=== PATIENT | female | born 1945 | race Caucasian/White ===

== ENCOUNTER → 2017-01-10 | Outpatient (CLI) | payer OTHER, MEDICAID | PROVIDERS: ATTEND Internal Medicine | DX: R13.10 Dysphagia, unspecified (principal); G20 Parkinson's disease | CPT/HCPCS: 74230; 92611; G8996; G8997 ==

== ENCOUNTER → 2017-01-20 | Outpatient (CLI) | payer OTHER, MEDICAID | LOC: FIMAGING 11:54 | PROVIDERS: ATTEND Physician Assistant | DX: M17.11 Unilateral primary osteoarthritis, right knee (principal); M25.562 Pain in left knee; Z96.652 Presence of left artificial knee joint ==

== ENCOUNTER → 2017-02-08 | Outpatient (CLI) | payer OTHER, MEDICAID | LOC: FIMAGING 08:16 | PROVIDERS: ATTEND Physician Assistant | DX: R13.14 Dysphagia, pharyngoesophageal phase (principal) ==

== ENCOUNTER → 2017-02-10 | Outpatient (CLI) | payer OTHER, MEDICAID | LOC: FIMAGING 09:42 | PROVIDERS: ATTEND Physician Assistant | DX: S89.92XA Unspecified injury of left lower leg, initial encounter (principal); Z96.652 Presence of left artificial knee joint ==

== ENCOUNTER → 2017-07-30 | Outpatient (CLI) | payer MEDICAID, OTHER | LOC: FIMAGING 06-22 13:09 | PROVIDERS: ATTEND Internal Medicine | DX: Z12.31 Encounter for screening mammogram for malignant neoplasm of breast (principal) | CPT/HCPCS: G0202 ==

== ENCOUNTER → 2017-10-15 | Outpatient (CLI) | payer OTHER | LOC: FIMAGING 12:49 | PROVIDERS: ATTEND Internal Medicine | DX: Z13.820 Encounter for screening for osteoporosis (principal); M81.0 Age-related osteoporosis without current pathological fracture ==

== ENCOUNTER 2017-12-22 12:21 | Emergency (ER) | payer OTHER ==
[2017-12-22 14:14] VITALS: O2SAT 92
--- NOTE | 2017-12-22 14:42 | EDPHY ---
General Narrative: CHIEF COMPLAINT: Fall, hand pain, rib pain HISTORY OF PRESENT ILLNESS: Patient complains of pain in the right hand and ribs after a fall this morning. Happened shortly prior to arrival. She was walking in her home in a hallway. She reports tripping "on my own feet," causing her to fall. She struck her right hand and ribs on the floor on the wall. She did not strike her head. She did not lose consciousness. Her only complaints moderate to severe pain in the right anterior ribs and axilla and right hand. ESTABLISHED ORTHOPEDIST: Spine was REVIEW OF SYSTEMS: Ten systems reviewed and are negative unless otherwise noted in the HPI PAST MEDICAL HISTORY: Complex. Reviewed with patient. PAST SURGICAL HISTORY: No recent surgeries. Multiple orthopedic surgeries SOCIAL HISTORY: Nonsmoker. Lives independently FAMILY HISTORY: Noncontributory EXAMINATION General Appearance: Alert, no distress HEENT: Normocephalic atraumatic. Neck: Supple nontender. Exaggerated lordosis. Painless range in all planes. Respiratory: Splinting with inspiration. Lungs are clear. No distress. No crackles. No diminishment. Cardiovascular: Regular rate. No murmur. Symmetric DP and PT pulses 2+. Symmetric radial pulses 2+. Back: No midline tenderness, crepitus or deformity. Neurological: A&O, sensory symmetric, strength symmetric Skin: Warm and dry, no rash. No petechiae or purpura Extremities: Tenderness of the right hand over the 2nd and 3rd MTP joints. Range of motion of the hands and fingers symmetric. No wrist tenderness. No elbow tenderness. Psychiatric: Mood and affect normal DIFFERENTIAL DIAGNOSES: Including but not limited to rib fracture, hemothorax, pneumothorax, pulmonary contusion, rib contusion, hand sprain, hand fracture, finger dislocation MDM: 1:15 p.m. Mechanical fall with injuries to the right rib and hand. She complains of pain no where else on her person. No head strike or loss of consciousness. She is splinting with her inspirations. I have ordered x-ray to evaluate for rib fracture and/or intrathoracic abnormality. I have ordered x-ray of the right hand. She is in no acute distress vital signs stable. She did have a pulse oximetry reading of 91% on room air. I discussed this further with her. She was recently on oxygen intermittently at night and has weaned off of this. Her oxygenation does very from 90-95% at times. She will be placed on pulse oximetry here in the emergency department. 2:30 p.m. I discussed the plain films with Dr. Krishnan. There is a possible, incomplete/ buckle type fracture of the right 6th rib, anterior axillary line. No acute abnormality of the hand noted. 2:45 p.m. Patient re-evaluated. I discussed the findings of the x-ray including the possible fracture of the right rib. We discuss symptomatic medications for 2-3 days. We discuss pulmonary toiletry. We discussed follow up with primary care physician early next week. We discussed ED precautions for worsening pain, fever, cough. She is comfortable with this plan and discharged home stable condition. SUPERVISION: This patient was independently evaluated without direct involvement of or examination by the attending physician. ED Precautions: Worsening pain. Erythema, edema, cyanosis, pallor, paresthesia or anesthesia. - Diagnostics Imaging Results: Imaging Impressions Hand X-Ray 12/22/17 13:14 Impression: 1. No evidence for acute fracture. 2. 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 There may be a component of an erosive osteoarthritis at the DIP joint 4th finger. 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 3. Postsurgical changes of fusion DIP joint 2nd and 3rd fingers. Ribs w/Chest X-Ray 12/22/17 13:14 Impression: 1. Possible subtle buckle fracture at the anterolateral right 6th rib. 2. No evidence for an acute cardiopulmonary abnormality. Chronic findings, as above. Results called and discussed with Tico uCeto PA-C, on December 22, 2017 at 1416. - History Smoking Status: Never smoked - Objective Vital Signs: Initial Vital Signs Temperature (C) 97.7 F 12/22/17 12:28 Heart Rate 72 12/22/17 12:28 Respiratory Rate 20 12/22/17 12:28 Blood Pressure 134/77 H 12/22/17 12:28 O2 Sat (%) 93 12/22/17 12:28 O2 Delivery Mode Room Air Allergies/Adverse Reactions: ibuprofen Allergy (Intermediate, Verified 12/22/17 12:27) Other-Enter Comments donepezil Allergy (Verified 12/22/17 12:31) tramadol Allergy (Verified 12/22/17 12:31) Home Medications: Medication Instructions Recorded Atenolol [Tenormin 25 mg (*)] 25 mg PO DAILY 08/29/12 Diclofenac Sodium 1% [Voltaren Gel 1 ovidio TP QID PRN 08/29/12 (*)] Fluticasone Nasal [Flonase Nasal 2 sprays EACH[place]ARE DAILY@0800 08/29/12 [place]] Fluticasone/Salmeterol [Advair 1 puffs IH BID@,08/29/12 250-50 Diskus] Omeprazole [Prilosec 20 mg] 20 mg PO BID@,08/29/12 Albuterol [Proventil Inhaler HFA 2 puffs IH Q6 PRN 10/11/15 (*)] Carbidopa/Levo Cr 50/200Mg 0.5 tab PO DAILY@2300 10/11/15 [SINEMET CR 50/200 MG (*)] Carbidopa/Levo Cr 50/200Mg 1.5 tab PO BID@,10/11/15 [SINEMET CR 50/200 MG (*)] Carbidopa/Levo Cr 50/200Mg 2 tab PO BID@0630,1830 10/11/15 [SINEMET CR 50/200 MG (*)] Montelukast Sodium [Singulair 10 10 mg PO DAILY 10/11/15 mg (*)] PARoxetine HCL [Paxil 30mg (*)] 30 mg PO DAILY 10/11/15 rOPINIRole HCL [Requip 1mg (*)] 2 mg PO DAILY@08 10/11/15 Multivitamins [Multivitamin (*)] 1 tab PO DAILY 11/27/15 clonazePAM [Klonopin (*)] 0.5 mg PO BID@14,21 11/27/15 rOPINIRole HCL [Requip 1mg (*)] 1 mg PO TID@12,17,11/28/15 Diazepam [Valium 5 MG (*)] 5 mg PO Q6 PRN #0 tab 12/20/15 oxyCODONE IR [Oxycodone Ir (*)] 5 - 15 mg PO Q3 PRN #60 tab 12/20/15 Aspirin EC [Aspirin EC 81 mg (*)] 81 mg PO BID 01/18/16 Atorvastatin Calcium [Lipitor 40 40 mg PO DAILY 01/18/16 mg (*)] Beta-Carotene(A) W-C & E/Min 1 tab PO DAILY 01/18/16 [Ocuvite] Cholecalciferol Vit D3 [Vitamin D3 1,000 units PO DAILY 01/18/16 (*)] HYDROcodone/APAP 10/325 [Flatgap 1 - 2 tab PO Q4 PRN 01/18/16 10/325 (*)] Melatonin/Pyridoxine HCl (B6) 1 tab PO HS 01/18/16 [Melatonin 10 mg Tablet] Polyethylene Glycol 3350 [Miralax 17 gm PO DAILY PRN 01/18/16 17 gm (*)] lamoTRIgine [LamICTAL 100 MG (*)] 100 mg PO QID 01/18/16 Acetaminophen [Tylenol 325mg (*)] 325 - 650 mg PO Q4 PRN #0 tab 02/20/16 Acetaminophen [Tylenol 325mg (*)] 325 - 650 mg PO Q4 PRN #0 tab 02/20/16 Hydrocodone/APAP 5/325 [Flatgap 1 - 2 tab PO Q3 PRN #0 tab 02/20/16 5/325 (*)] Magnesium Hydroxide [Milk of 30 ml PO DAILY PRN #0 udcup 02/20/16 Magnesia (*)] Melatonin [Melatonin 3 MG (*)] 3 mg PO HS #0 tab 02/20/16 Ondansetron HCl Pf [Zofran 4 mg 4 - 8 mg IVP Q6 PRN #0 vial 02/20/16 Inj (*)] Ondansetron Odt [Zofran Odt 4 mg 4 - 8 mg PO Q6 PRN #0 tab 02/20/16 (*)] Polyethylene Glycol 3350 [Miralax 17 gm PO DAILY PRN #0 pkt 02/20/16 17 gm (*)] Sennosides/Docusate Sodium 1 - 2 tab PO BID #0 tab 02/20/16 [Senokot-S] diphenhydrAMINE [Benadryl 25 MG 25 - 50 mg PO Q6 PRN #0 cap 02/20/16 (*)] oxyCODONE IR [Oxycodone Ir (*)] 5 - 15 mg PO Q3 PRN #0 tab 02/20/16 oxyCODONE HCL/ACETAMINOPHEN 1 each PO Q4-6PRN PRN #7 tablet 02/10/18 [Percocet 5-325 mg Tablet] Medications Given: Discontinued Medications Oxycodone/Acetaminophen (Percocet 5/325) 1 tab PO EDNOW ONE Stop: 12/22/17 14:59 Last Admin: 12/22/17 15:03 Dose: 1 tab Departure - Departure Disposition: Home, Routine, Self-Care Clinical Impression: Fracture of rib of right side Qualifiers: Encounter type: initial encounter Rib fracture type: single rib Fracture type: closed Qualified Code(s): S22.31XA - Fracture of one rib, right side, initial encounter for closed fracture Contusion of hand, right Qualifiers: Encounter type: initial encounter Qualified Code(s): S60.221A - Contusion of right hand, initial encounter Condition: Good Instructions: Rib Fracture (ED), Hand Sprain (ED) Additional Instructions: 1. Percocet as prescribed as needed for the next 2-3 days 2. Incentive spirometry at least 1 time per hour while awake for the next 5-7 days 3. Contact primary care physician Sunday morning to be seen Sunday or Sunday without fail 4. ED precautions as discussed Referrals: Ketty Oates MD [Primary Care Provider] - As per Instructions Prescriptions: oxyCODONE HCL/ACETAMINOPHEN [Percocet 5-325 mg Tablet] 1 each PO Q4-6PRN PRN #7 tablet PRN Reason: Pain, Breakthrough
[2017-12-22 14:53] VITALS: BP 114/69; PULSE 67; RESP 18; TEMP 98.1
[2017-12-22] MEDS ORDERED: OXYCODONE/APAP 5/325 TAB PO ONE (14:58)
== END 2017-12-22 15:17 | disposition home or self-care (01) ==
DX: S22.31XA Fracture of one rib, right side, initial encounter for closed fracture (principal); S60.221A Contusion of right hand, initial encounter; W01.198A Fall on same level from slipping, tripping and stumbling with subsequent striking against other object, initial encounter; Y92.009 Unspecified place in unspecified non-institutional (private) residence as the place of occurrence of the external cause; Y99.8 Other external cause status; Y93.01 Activity, walking, marching and hiking

== ENCOUNTER → 2018-02-11 | Outpatient (CLI) | payer OTHER | LOC: FIMAGING 08:39 | PROVIDERS: ATTEND Physician Assistant | DX: R13.14 Dysphagia, pharyngoesophageal phase (principal) | CPT/HCPCS: 78264; A9541 ==

== ENCOUNTER → 2018-04-09 | Outpatient (CLI) | payer OTHER | LOC: FIMAGING 15:55 | PROVIDERS: ATTEND Physician Assistant | DX: S52.611A Displaced fracture of right ulna styloid process, initial encounter for closed fracture (principal); M19.041 Primary osteoarthritis, right hand; M18.11 Unilateral primary osteoarthritis of first carpometacarpal joint, right hand; W19.XXXA Unspecified fall, initial encounter ==

== ENCOUNTER → 2018-05-03 | Outpatient (CLI) | payer OTHER | LOC: FIMAGING 14:43 | DX: M24.051 Loose body in right hip (principal); M16.12 Unilateral primary osteoarthritis, left hip; Z96.641 Presence of right artificial hip joint ==

== ENCOUNTER → 2018-07-31 | Outpatient (CLI) | payer OTHER | LOC: FIMAGING 09:34 | PROVIDERS: ATTEND Internal Medicine | DX: Z12.31 Encounter for screening mammogram for malignant neoplasm of breast (principal) ==

== ENCOUNTER → 2019-03-14 | Outpatient (CLI) | payer OTHER ==
[~2019-03-14] MED LIST: IOPAMIDOL (ISOVUE 370) 100 ML BTL IV ONE; LIDOCAINE 1% 300 MG/30 ML SDV ONE
== END ==
LOC: FIMAGING 10:28
PROVIDERS: ATTEND Orthopaedic Surgery
PROC: 0S9B3ZZ Drainage of Left Hip Joint, Percutaneous Approach (ICD-10-PCS; principal; 2019-03-14)
DX: M25.552 Pain in left hip (principal)
CPT/HCPCS: 20610; Q9967

== ENCOUNTER → 2019-03-31 | Outpatient (CLI) | payer OTHER | LOC: FIMAGING 09:51 | PROVIDERS: ATTEND Internal Medicine | DX: Z13.820 Encounter for screening for osteoporosis (principal); M81.0 Age-related osteoporosis without current pathological fracture ==